=== PATIENT | male | born 1955 | race Caucasian/White ===

== ENCOUNTER → 2016-09-14 | Outpatient (CLI) | payer BC ==
[~2016-09-14] MED LIST: ASPIRIN81 M2; BYSTOLIC5 MG; KEFLEX PO; LANSOPRAZOLE30 MG; LEVAQUIN; LIVALO2 MG; MULTI-VITAMIN1 EAC1; NEXIUM PO
--- NOTE | ~2016-09-14 | CT57 ---
[facility] A Service [facility] RADIOLOGY TEXT RESULTS PATIENT: RADAMES HUMPHRIES LOCATION: [facility] : 51 UNIT #: [id number] AGE: [address]: Rosa Mistry APRN SEX: M ORDER DR: [id number] [address] [id number] O MR#: [id number] Acc #: [id number] NAME: RADAMES HUMPHRIES : 1955 SEX: M STUDY DATE/TIME: 09/14/2016 10:11 UNIT: [facility] ROOM: STUDY DESCRIPTION: CT Chest Wo Cont Attending Physician: Rosa Mistry A.P.R.N. Referring Physician: Rosa Mistry A.P.R.N. Ordering Physician: Edmund Salgado M.D. Primary Care Physician: Jay Girard M.D. MEDICAL IMAGING REPORT This report is preliminary unless electronic signature is present. EXAM CT chest without contrast INDICATION 50+ year smoking history. Cough for the past few months. Followup. PROCEDURE Unenhanced CT of the chest, This CT exam was performed with one or more of the following radiation dose reduction techniques: automatic exposure control, adjustment of mA and/or kV according to patient size, and iterative reconstruction. COMPARISON CT lung cancer screening from 11/11/2015. FINDINGS No dense consolidation. Emphysema. No suspicious nodule. No adenopathy. Coronary artery calcification. Previous granulomatous disease. No acute findings in the included upper abdomen. No aggressive appearing bone lesion. IMPRESSION 1. No acute findings in the chest. 2. Emphysema. 3. No suspicious pulmonary nodules. No change from the patient's lung cancer screening CT on 11/11/2015. 4. Recommend patient continue with yearly lung cancer screening. Dictated by... Cj Calhoun M.D. [facility] A [facility] RADIOLOGY TEXT RESULTS PATIENT: RADAMES HUMPHRIES LOCATION: [facility] : 51 UNIT #: [id number] AGE: [address]: Rosa Mistry APRN SEX: M ORDER DR: THIS IS AN ELECTRONICALLY VERIFIED REPORT Cj Calhoun M.D. at 09/15/2016 7:07 AM Jose TD: 09/14/2016 14:28 JOB #: [id number] MEDICAL IMAGING REPORT Page 1 of 1
== END | disposition home or self-care (01) ==
LOC: SCT 10:04
DX: J43.9 Emphysema, unspecified (principal)
CPT/HCPCS: 71250